=== PATIENT | male | born 1955 | race American Indian/Alaskan Native ===

== ENCOUNTER 2018-10-18 05:56 | Observation (INO) | payer MEDICARE ==
[~2018-10-18 05:56] MED LIST: DILAUDID IV PRN; LACTATED RINGERS 1,000 ML IV SCH; VERSED IV NR; ZOFRAN IV PRN
[2018-10-18] MEDS ORDERED: NACL 0.9% 1000 ML 1,000 ML ONE ×2 (07:51→08:57)
[2018-10-18] MEDS ORDERED: NACL 0.9% 1000 ML 1,000 ML IV SCH (08:30)
[2018-10-18 08:36] LABS: Basophils % (Auto) 0.5 % (0.0-1.8); Eosinophils # (Auto) 0.1 K/mm3 (0.0-0.4); Eosinophils % (Auto) 1.3 % (0.0-4.3); Hematocrit 41.8 % (35.5-45.6); Lymphocytes # (Auto) 2.2 K/mm3 (1.2-5.4); Lymphocytes % (Auto) 26.4 % (13.4-35.0); Mean Corpuscular HGB Conc 33 % (32-34); Mean Corpuscular Volume 89 fl (84-94); Monocytes # (Auto) 0.9 K/mm3 (0.0-0.8); Monocytes % (Auto) 11.1 % (0.0-7.3); Platelet Count 164 K/mm3 (140-440); Red Blood Count 4.68 M/mm3 (3.65-5.03); Red Cell Distribution Width 15.1 % (13.2-15.2)
[2018-10-18 08:46] LABS: BUN/Creatinine Ratio 11; Blood Urea Nitrogen 11 mg/dL (9-20); Calcium 9.4 mg/dL (8.4-10.2); Hemolysis Index 10
[2018-10-18] MEDS ORDERED: ANTIBIOTIC OINT TP ONE (08:57)
[2018-10-18] MEDS ORDERED: MARCAINE 0.5% INFILTRATI ONE ×4 (08:57→12:05)
[2018-10-18] MEDS ORDERED: METHYLENE BLUE ONE (08:58)
[2018-10-18] MEDS ORDERED: XYLOCAINE 1%/ EPI 1:100,000 INFILTRATI ONE ×3 (08:58→10:15)
[2018-10-18] MEDS ORDERED: ANCEF ONE (08:58)
[2018-10-18] MEDS ORDERED: NACL 0.9% 250ML 0 ML ONE (08:58)
[2018-10-18] MEDS ORDERED: BACITRACIN ONE (08:59)
[2018-10-18] MEDS ORDERED: CELESTONE SOLUSPAN IM ONE (09:06)
[2018-10-18] MEDS ORDERED: NACL P/F VIAL (10 ML) 10 ML ONE (09:15)
[2018-10-18] MEDS ORDERED: PEPCID IV ONE (09:16)
[2018-10-18] MEDS ORDERED: NEURONTIN ONE (09:16)
[2018-10-18] MEDS ORDERED: DIPRIVAN 10 MG/ML IV ONE ×6 (09:35→13:05)
--- NOTE | 2018-10-18 09:37 | Anesthesia Day of Surgery ---
Anesthesia Day of Surgery - Day of Surgery Patient Examined: Yes Patient H&P Reviewed: Yes Patient is NPO: Yes
[2018-10-18] MEDS ORDERED: ZOFRAN ONE ×2 (09:38→10:43)
[2018-10-18] MEDS ORDERED: XYLOCAINE MPF 2% ONE (09:38)
[2018-10-18] MEDS ORDERED: DECADRON ONE ×2 (09:38→10:43)
--- NOTE | 2018-10-18 09:38 | Anesthesia Consultation ---
Anesthesia Consult and Med Hx Date of service: 10/18/18 - Airway Anesthetic Teeth Evaluation: Poor ROM Head & Neck: Adequate Mental/Hyoid Distance: Adequate Mallampati Class: Class III Intubation Access Assessment: Possibly Difficult - Pulmonary Exam CTA: Yes - Cardiac Exam Cardiac Exam: RRR - Pre-Operative Health Status ASA Pre-Surgery Classification: ASA3 Proposed Anesthetic Plan: General (COPD, HTN, Chronic pain takes percocet 10mg 4 times a day, denies CAD, SOB) - Pulmonary Hx Smoking: Yes (1 PPD X 50 YRS) COPD: Yes (NO MEDS) Hx Sleep Apnea: No (EVELYNE PRE SCREEN HIGH RISK) - Cardiovascular System Hx Hypertension: Yes (X 8 YRS) - Central Nervous System Hx Back Pain: (NECK AND BACK PAIN) - Other Systems Hx Cancer: No
[2018-10-18] MEDS ORDERED: SUBLIMAZE ONE ×2 (09:40→12:27)
[2018-10-18] MEDS ORDERED: [UNRECOGNIZED DRUG - OTHER] IV ONE (10:00)
[2018-10-18] MEDS ORDERED: NACL 0.9% IV ONE (10:00)
[2018-10-18] MEDS ORDERED: ANCEF/STERILE WATER 2 GM/20 ML IV NR (10:00)
[2018-10-18] MEDS ORDERED: DEXMEDETOMIDINE IV ONE (10:03)
[2018-10-18] MEDS ORDERED: NACL 0.9% 100 ML ONE (10:04)
[2018-10-18] MEDS ORDERED: KETALAR ONE (10:06)
[2018-10-18] MEDS ORDERED: NEO SYNEPHRINE/NS Syringe(OR USE) IV ONE (10:27)
[2018-10-18] MEDS ORDERED: ZEMURON IV ONE (10:27)
[2018-10-18] MEDS ORDERED: DEPO-Medrol INTRA-ARTI ONE (10:30)
[2018-10-18] MEDS ORDERED: BACITRACIN IR ONE (10:30)
[2018-10-18] MEDS ORDERED: NACL 0.9% IR ONE ×2 (10:30)
[2018-10-18] MEDS ORDERED: DEPO-Medrol ONE (12:05)
[2018-10-18] MEDS ORDERED: DILAUDID IV PRN (14:04)
[2018-10-18] MEDS: PERCOCET 5/325 PO PRN (22:20)
[2018-10-19] MEDS: PERCOCET 5/325 PO PRN (04:47)
[2018-10-19 08:12] VITALS: BP 141/73
--- NOTE | 2018-10-19 09:35 | Short Stay Summary ---
Short Stay Documentation Date of service: 10/18/18 - History H&P: obtained from office Past Medical History: COPD, GERD, hypertension, hyperlipidemia Past Surgical History: total knee replacement (Left), Other (Lumbar fusion L4- S1) Social history: single, - Allergies and Medications Current Medications: Allergies No Known Allergies Allergy (Verified 10/14/18 15:03) Home Medications Medication Instructions Recorded Confirmed Last Taken Type ALPRAZolam [Xanax] 1 mg PO QHS 10/14/18 10/18/18 10/17/18 16:30 History AtorvaSTATin [Lipitor] 40 mg PO QHS 10/14/18 10/18/18 10/17/18 09:00 History Baclofen [Lioresal] 10 mg PO TID 10/14/18 10/18/18 10/17/18 17:30 History Cholecalciferol (Vitamin D3) 5,000 unit PO Q2W 10/14/18 10/18/18 09/29/18 23:00 History [Vitamin D3] Cimetidine [Tagamet Hb] 300 mg PO BID 10/14/18 10/18/18 10/17/18 09:00 History Cyanocobalamin (Vitamin B-12) 1 dose IM Q4W 10/14/18 10/18/18 10/03/18 09:00 Hi story [Vitamin B12] Gabapentin [Neurontin] 400 mg PO TID 10/14/18 10/18/18 10/17/18 17:30 History Hydrocodone Bitartrate [Zohydro ER] 30 mg PO DAILY 10/14/18 10/14/18 Unknown History Lisinopril [Zestril] 20 mg PO DAILY 10/14/18 10/18/18 10/17/18 09:00 History Omeprazole 20 mg PO BID 10/14/18 10/18/18 10/17/18 09:00 History Oxycodone HCl/Acetaminophen 1 each PO QID 10/14/18 10/18/18 10/18/18 01:00 History [Percocet 10/325 mg] Pyridoxine HCl (Vitamin B6) 50 mg PO QDAY 10/14/18 10/18/18 10/17/18 09:00 History [Vitamin B-6] Testosterone Cypionate 200 mg IM Q4W 10/14/18 10/18/18 10/08/18 09:00 History [Depo-Testosterone] Zolpidem [Ambien] 10 mg PO QHS 10/14/18 10/18/18 10/16/18 21:00 History hydroCHLOROthiazide [HCTZ] 25 mg PO QDAY 10/14/18 10/18/18 10/17/18 09:00 History Active Medications Alprazolam (Xanax) 1 mg PO QHS [facility] Atorvastatin Calcium (Lipitor) 40 mg PO QHS [facility] Baclofen (Lioresal) 10 mg PO TID [facility] Gabapentin (Neurontin) 400 mg PO TID [facility] Hydrochlorothiazide (Hctz) 25 mg PO QDAY [facility] Hydromorphone HCl (Dilaudid) 1 mg IV Q4H PRN PRN Reason: Pain , Severe (7-10) Sodium Chloride (Nacl 0.9% 1000 Ml) 1,000 mls @ 75 mls/hr IV DIRECT [facility] Last Admin: 10/18/18 10:35 Dose: 75 mls/hr Documented by: Lisinopril (Zestril) 20 mg PO DAILY [facility] Miscellaneous Medication (Oxycodone Hcl/Acetaminophen [Percocet 10/325 Mg]) 1 each PO QID [facility] Oxycodone/Acetaminophen (Percocet 5/325) 2 tab PO Q6H PRN PRN Reason: Pain, Moderate (4-6) Last Admin: 10/19/18 04:47 Dose: 2 tab Documented by: Zolpidem Tartrate (Ambien) 10 mg PO QHS [facility] - Physical exam General appearance: no acute distress Integumentary: no rash HEENT: Atraumatic, PERRLA, EOMI Lungs: Other (Ronchi) Heart: Regular rate, Normal S1, Normal S2 Gastrointestinal: normal Male Genitourinary: deferred Rectal Exam: deferred Extremities: pulses intact, normal temperature, normal color Neurological: Strength at 5/5 X4 ext, Sensation intact, Cranial nerves 3-12 NL, Other (Patellar reflexes 1+ bilaterally. Relates reflexes trace to 1+ bilaterally.) - Brief post op/procedure progress note Date of procedure: 10/18/18 Pre-op diagnosis: Lumbar spinal stenosis with neurogenic claudication- L3-4 Post-op diagnosis: same Procedure: Left hemilaminotomy at L3-4 with lumbar spinal decompression. Anesthesia: GETA Surgeon: KIRSTEN PURVIS Estimated blood loss: other (25 mL) Pathology: none Condition: stable - Hospital course Hospital course: The patient was admitted for observation and treatment for postoperative pain. Marques catheter was removed and postoperative anesthesia care unit. Pain managed by IV and oral medication. Neurologic examination intact. No postoperative headache or other complication. He was discharged in good condition on 10/19/2018. - Disposition Condition at discharge: Good Disposition: DC-01 TO HOME OR SELFCARE Short Stay Discharge Plan Follow up with: SONAM MOODY [Other] - 6 Weeks
--- NOTE | 2018-10-19 09:56 | Operative Report ---
Operative Report Operative Report: PREOPERATIVE DIAGNOSIS: 1. Chronic lower extremity radiculopathy. 2. Chronic axial low back pain. 3. Degenerative disc disease of lumbar spine. 4. Lumbar spinal stenosis at L3-4 with neurogenic claudication. POSTOPERATIVE DIAGNOSIS: 1. Chronic lower extremity radiculopathy. 2. Chronic axial low back pain. 3. Degenerative disc disease of lumbar spine. 4. Lumbar spinal stenosis at L3-4 with neurogenic claudication. PROCEDURE PERFORMED: 1. Left Hemilaminotomy of Lumbar Spine -L3-4 2. Intraoperative lumbar myelography. SURGEON: KIRSTEN PURVIS M.D. ANESTHESIA: GETA, 1% lidocaine local/0.5% bupivicaine. NEUROMONITORING: EMG and SSEP neuromonitoring bilateral lower extremities was performed throughout the procedure. No abnormal activity was observed during the procedure. EBL: 25 mL DESCRIPTION OF PROCEDURE: Following informed consent, the patient was brought to the operative suite and placed on the table a prone position. General endotracheal anesthesia was delivered without complication. The back was sterilely prepped and draped in routine fashion. Patient received 2 g of Ancef intravenously for antimicrobial prophylaxis. A C-arm was brought into place with attention turned to the lumbar spine. Attention was turned toward the left L2-3 interlaminar space. A 25-gauge 3.5 inch spinal needle was directed into the central spinal canal. Following Spontaneous return of CSF, 12 mL of Omnipaque 240 was injected with satisfactory opacification of the subarachnoid fluid within the ventral aspect of the thecal sac. The following findings were identified with intraoperative lumbar myelography: Severe restriction of contrast flow caudal to L3-4 on initial injection. Obstruction was noted to extend cephalad to the L3-4 disc space consistent with ligament and facet joint hypertrophy, greatest on the left side. Following intraoperative decompression at L3-4 significant improvement in contrast flow with opacification of the caudal aspect of the central spinal canal. No evidence of severe disc bulge or herniation at L2-3 or L3-4. Postoperative changes observed at L4-5 and L5-S1 with laminectomy defect at L4.. Attention was next turned to the lumbar spine at L3-4 on the left. Following injection of 1% lidocaine with epinephrine, a 1 cm vertical incision was made overlying the left L3-4 interlaminar space. Using serial dilators, a tract was created to the lamina on the L34, with significant fibrosis encountered. A tubular retractor was anchored in place. The bony structures and attached soft tissues were identified under direct visualization. This was followed by placement of a endoscope. Bipolar electrocautery was utilized for hemostasis. The soft tissue was dissected from the dorsal aspect of the superior and inferior lamina. The ligamentum flavum was identified. Partial resection of the ligament was performed. Using a high-speed articulating drill with a stacey-tip winter, the inferior aspect of the L3 lamina was resected enlarging the interlaminar window. Utilizing bipolar electrocautery for ablation and a endoscopic 45 Kerrison, the ligamentum flavum was further resected exposing the dorsal aspect of the thecal sac. The retractor was then angled superiorly and additional ligament, facet joint capsule. Bony resection was carried to the midline Once decompression appeared to be satisfactory with free flow of contrast through the area of stenosis at L3-4, the instrumentation was removed. An incision was closed with interrupted 3-0 Vicryl sutures and skin edges were approximated with 3-0 Prolene interrupted sutures. Sterile dressing was applied. The patient was turned onto the gurney, extubated and taken to the PACU in stable cardiopulmonary neurologic condition. DISPOSITION: Patient admitted for 23 hour observation. FOLLOW-UP: In office in 7 days for wound check.
[2018-10-19] MEDS ORDERED: ZESTRIL PO SCH (10:00)
[2018-10-19] MEDS ORDERED: HCTZ PO SCH (10:00)
[2018-10-19] MEDS ORDERED: NON-FORMULARY (Oxycodone Hcl/Acetaminophen [Percocet 10/325 Mg] 1 EACH) PO SCH (10:00)
[2018-10-19] MEDS ORDERED: NEURONTIN PO SCH (14:00)
[2018-10-19] MEDS ORDERED: LIORESAL PO SCH (14:00)
[2018-10-19] MEDS ORDERED: XANAX PO SCH (22:00)
[2018-10-19] MEDS ORDERED: AMBIEN PO SCH (22:00)
--- NOTE | 2018-10-21 07:45 | Fluoroscopy Report ---
FLUOROSCOPY MYELOGRAM LUMBOSACRAL History: Post laminectomy syndrome. Findings: Fluoroscopy was provided by radiology during lumbosacral myelogram and hemilaminotomy at L3-4. 7 fluoroscopic images were saved. There has been previous posterior fixation of L4-5 with disc spacer placement. Images demonstrate contrast within the lumbar spinal canal. Images suggests moderate to high-grade central canal stenosis at L4 and L5 levels. Please correlate with the procedural report by Dr. العراقي. Impression: Successful lumbosacral myelogram and hemilaminotomy at L3-4.
== END 2018-10-19 09:50 | disposition home or self-care (01) ==
LOC: OR 05:56 → 3B-SURG 14:04
PROVIDERS: ADMIT Radiology Diagnostic Radiology; ATTEND Radiology Diagnostic Radiology
DX: M54.16 Radiculopathy, lumbar region (principal); M48.062 Spinal stenosis, lumbar region with neurogenic claudication; K21.9 Gastro-esophageal reflux disease without esophagitis; J44.9 Chronic obstructive pulmonary disease, unspecified; I10 Essential (primary) hypertension; E78.5 Hyperlipidemia, unspecified
CPT/HCPCS: 36415; 62304; 63030; 80048; 85025; 86850; 86900; 86901; A4217; G0378; J1030; J1100; J2250; J2370; J2405; J2704; J3010; J7030; J7120; Q9966; J0690; J0702; J7050; Q9968